=== PATIENT | male | born 1975 | race Caucasian/White ===

== ENCOUNTER 2020-11-29 20:24 | Emergency (ER) | payer OTHER ==
[~2020-11-29] VITALS: Ht 175.3 cm; Wt 102.4 kg
[2020-11-29 20:29] VITALS: BP 176/115
--- NOTE | 2020-11-29 20:40 | NUR ---
PATIENT D/C FROM TRIAGE.
--- NOTE | 2020-11-29 20:41 | NUR ---
Patient given discharge instructions and they have confirmed that they understand the instructions. Patient ambulatory with steady gait. NAD, all questions answered appropriately, denies additional needs at this time. No personal belongings left in room after discharge.
== END 2020-11-29 20:59 | disposition home or self-care (01) ==
LOC: ED 20:52
DX: K08.89 Other specified disorders of teeth and supporting structures (principal)
CPT/HCPCS: 99283